=== PATIENT | female | born 1970 | race American Indian/Alaskan Native ===

== ENCOUNTER 2016-10-01 10:52 | Outpatient (CLI) | payer OTHER ==
--- NOTE | 2016-10-01 13:51 | XRay Report ---
Paranasal sinuses, 3 views. History: Sinusitis. Findings: There is opacification of the left maxillary sinus. The remaining paranasal sinuses are clear. No air-fluid levels are seen. There are no significant bony findings. Impression: Opacification of the left maxillary sinus probably due to sinusitis.
== END 2016-10-01 10:53 | disposition home or self-care (01) ==
LOC: SPVIMAG 10:52
PROVIDERS: ATTEND Family Medicine
DX: J30.9 Allergic rhinitis, unspecified (principal)
CPT/HCPCS: 70220